=== PATIENT | male | born 1990 | race African-American/Black ===

== ENCOUNTER 2024-02-04 11:20 | Emergency (ER) | payer OTHER, SELFPAY ==
--- NOTE | ~2024-02-04 | CT_ITS ---
EXAMINATION: CT lumbar spine wo con DATE: 02/04/2024 13:27 INDICATION: Low back pain. TECHNIQUE: Computed tomography (CT) of the lumbar spine was performed without intravenous contrast. A utomated exposure control and iterative reconstruction technique were employed. The dose-length produ ct was 1566.57 mGy-cm. COMPARISON: None FINDINGS: There is 4 degrees dextrocurvature of thoracolumbar spine. Vertebral body heights are jessie l. Intervertebral disc heights are normal. The following disc levels are specifically discussed: L1-L2: The disc does not extend beyond the endplate margin. There is mild bilateral facet joint osteo arthritis. There is no neural foraminal stenosis. There is no central canal stenosis. L2-L3: The disc does not extend beyond the endplate margin. There is mild bilateral facet joint osteo arthritis. There is no neural foraminal stenosis. There is no central canal stenosis. L3-L4: The disc is bulging. There is mild bilateral facet joint osteoarthritis. There is mild bilater al neural foraminal stenosis. There is mild central canal stenosis. L4-L5: The disc is bulging. There is mild bilateral facet joint osteoarthritis. There is mild bilater al neural foraminal stenosis. There is mild central canal stenosis. L5-S1: The disc is bulging. There is mild bilateral facet joint osteoarthritis. There is mild bilater al neural foraminal stenosis. There is mild central canal stenosis. IMPRESSION: 1. Mild lumbar spondylosis. Reviewed, dictated and finalized at location E. IMPRESSION: 1. Mild lumbar spondylosis.
[2024-02-04 11:21] VITALS: BP 138/69; PULSE 60; RESP 18; TEMP 36.6; O2SAT 100
--- NOTE | 2024-02-04 13:14 | ED.BACK ---
HPI - Back Pain/Injury General Chief Complaint: Back Pain/Injury Stated Complaint: back pain Time Seen by Provider: 02/04/24 12:32 History of Present Illness HPI Narrative: Patient is a 33-year-old male who presents to the emergency department this afternoon complaining of lower right back pain. Patient states that he has been having this pain for the past 3-4 days. He admits that he works for [employer] and does lift a lot of heavy objects. Patient went to an urgent care few days ago and was given a pain shot and muscle relaxer which he states has not improved his symptoms. Patient also states that he went back to work the next day and feels as though maybe that was the reason why his symptoms did not improve. Patient denies any recent falls or trauma. He does admit sciatic like pain occasionally shooting down his right leg. Patient denies any previous imaging of his lower lumbar spine. He did this admit that at the Urgent Care they performed x-rays of his lower back and nose did not reveal any abnormality. Patient denies any bowel or bladder incontinence, denies any IV drug use any recent fevers or chills and denies any additional symptoms or concerns at this time. Review of Systems Review of Systems: All systems are reviewed and are negative unless stated otherwise in the HPI. Exam Narrative: General: Alert, awake, afebrile, in no acute distress. HEENT: PERRL, no rhinorrhea, no post nasal drip, oropharynx clear. Cardiovascular: Regular rate and rhythm, no murmurs, rubs or gallops, no peripheral edema. Respiratory: Clear to auscultation bilaterally, no tachypnea, no wheezing, no rhonchi, no rubs, no respiratory distress. Abdomen: Soft, nontender, nondistended, no rebound, no guarding, no peritoneal signs. Musculoskeletal: No joint swelling or deformity, normal muscle tone, no midline tenderness to palpation over the lumbar spine. Skin: No rashes or petechia, no signs of infection. Psychiatric: Alert and oriented, normal behavior and judgment for situation. Neurological: Alert and oriented to person, place, and time. Follows all commands. No focal deficits, speech is clear and fluent. Course Vital Signs Vital signs: Vital Signs Temperature 97.9 F 02/04/24 11:21 Pulse Rate 60 02/04/24 11:21 Respiratory Rate 18 02/04/24 11:21 Blood Pressure 138/69 02/04/24 11:21 Pulse Oximetry 100 02/04/24 11:21 Oxygen Delivery Room Air 02/04/24 11:21 Temperature 97.9 F 02/04/24 11:21 Pulse Rate 60 02/04/24 11:21 Respiratory Rate 18 02/04/24 11:21 Blood Pressure 138/69 02/04/24 11:21 Pulse Oximetry 100 02/04/24 11:21 Oxygen Delivery Room Air 02/04/24 11:21 MDM - Back Pain/Injury MDM Narrative Medical decision making narrative: The patient was evaluated by myself in the emergency department. History is obtained from patient who is an independent historian and physical exam was performed. External medical records were reviewed at this time. IV was established and pertinent tests were ordered. Patient was administered 50 mg of IM Toradol for pain. Imaging studies obtained included CT lumbar spine without IV contrast which was independently interpreted by me revealing mild lumbar spondylosis, which is pending final radiology interpretation. Differential diagnosis considerations include herniated disc, musculoskeletal strain and pinched nerve. Comorbidities impacting this visit include history of work involving heavy lifting. I have evaluated and discussed social determinants of health with the patient that could potentially impact subsequent diagnosis and treatment plans. On repeat assessment of the patient, reevaluation revealed that the patient is doing well and is in no acute distress. Patient symptoms have improved since he arrived to our emergency department. Repeat vital signs were all reviewed and noted to be stable. Differential diagnosis and treatment plan were discussed with the
[2024-02-04] MEDS: KETOROLAC 30 MG/ML VIAL (*BKC) 15 MG IM (13:15)
== END 2024-02-04 13:50 | disposition home or self-care (01) ==
PROVIDERS: Emergency Provider Emergency Medicine
DX: M47.816 Spondylosis without myelopathy or radiculopathy, lumbar region (principal)
CPT/HCPCS: 72131; 96372; 99284; J1885

== ENCOUNTER 2024-06-20 12:05 | Emergency (ER) | payer OTHER, SELFPAY ==
[2024-06-20 12:14] VITALS: BP 122/82; PULSE 56; RESP 20; TEMP 36.6; O2SAT 100
--- NOTE | 2024-06-20 12:58 | ED.GENADULT ---
HPI - General Adult General Chief complaint: Abdominal Pain Stated complaint: Abdominal Pain/Diarrhea Time Seen by Provider: 06/20/24 12:59 Source: patient, RN notes reviewed and old records reviewed Mode of arrival: ambulatory Limitations: no limitations History of Present Illness HPI narrative: 34-year-old male presents to the [facility] with concerns for diarrhea. States last night he had a call in sick to work due to several episodes of diarrhea due to eating at a new place which food was very spicy. Patient had 1 episode of nausea with vomiting but states that after he vomited he felt much better. Denies any abdominal pain, fevers. No treatment prior to arrival Onset (ago): day(s) (1) Treatments prior to arrival: none Related Data Home Medications Medication Instructions Recorded Confirmed ibuprofen 800 mg tablet 800 mg PO TID 06/20/24 06/20/24 Allergies Allergy/AdvReac Type Severity Reaction Status Date / Time No Known Allergies Allergy Verified 06/20/24 12:09 Review of Systems Review of Systems: All systems reviewed & are unremarkable except as noted in HPI and below Constitutional: Constitutional: Reports no additional constitutional complaints Eyes: Eyes: Reports no additional eye complaints ENT: Reports system reviewed and no additional complaints, except as documented Cardiovascular: Cardiovascular: Reports no additional cardiovascular complaints, Denies chest pain and Denies dyspnea Respiratory: Respiratory: Reports no additional respiratory complaints, Denies chest congestion, Denies cough and Denies dyspnea Gastrointestinal: Gastrointestinal: Reports as per HPI, Reports abdominal pain, Reports diarrhea, Reports nausea and Reports vomiting Musculoskeletal: Musculoskeletal: Reports no additional musculoskeletal complaints Integumentary/Breasts: Skin/Breast: Reports system reviewed and no additional complaints, except as docu Neurologic: Reports system reviewed and no additional complaints, except as documented Psychiatric: Psychiatric: Reports no additional psychiatric complaints Allergic/Immunologic: Allergic/Immunologic: Reports no additional allergic/immunologic complaints PMFSH Comments At the time of my signature, I reviewed and agree with the nursing past medical, surgical, social, and family history. There is no relevant family history pertinent to the patient complaint. Exam Const: General: cooperative, healthy appearing, comfortable, no acute distress, well developed, alert and well nourished Nutritional Appearance: well nourished and obese Orientation/consciousness: patient oriented x3 Limitations: no limitations HENMT: Head: normal to inspection Ears: hearing grossly normal bilaterally and external ears normal Face/Nose/Sinus: Normal external nose present, normal facial exam and face symmetric Face and sinus: normal facial exam and face symmetric Eyes: General: appearance normal, both eyes and all related structures Alignment and Position: alignment normal Periorbital: periorbital findings normal Neck: Neck: normal visual inspection, full ROM, no lymphadenopathy and no meningeal signs Chest: Chest palpation & inspection: normal inspection of the chest Resp: Effort & Inspection: normal respiratory effort and able to speak in complete sentences Auscultation: clear to auscultation bilaterally, no crackles, no rales, no rhonchi and no wheezes Cardio: Rate: regular rate Rhythm: regular rhythm GI: GI Palp: No abdominal tenderness and Yes Soft to palpation Auscultation: normal bowel sounds Skin: General skin exam: normal color and no rashes or lesions noted Lesions: no lesions Rashes: no rashes Trauma: no lacerations or abrasions Wounds: no wounds Neuro: General: patient oriented x3, gait normal, tone normal, moves all extremities and no meningeal signs Cognition (Neuro): normal cognition Speech: normal speech Gait exam (Neuro): Normal gait present Extrem: General: nor
== END 2024-06-20 13:15 | disposition home or self-care (01) ==
PROVIDERS: Emergency Provider Nurse Practitioner; PCP Physician Assistant
DX: K52.9 Noninfective gastroenteritis and colitis, unspecified (principal)
CPT/HCPCS: 99211; G0463

== ENCOUNTER 2024-10-13 08:24 | Emergency (ER) | payer OTHER, SELFPAY ==
[2024-10-13 08:34] VITALS: BP 118/63; PULSE 62; RESP 16; TEMP 36.8; O2SAT 98
--- NOTE | 2024-10-13 08:42 | ED.URI ---
HPI - URI/Sore Throat General Chief Complaint: Upper Respiratory Infection Stated Complaint: throwing up,MCCOY,ear pressure Time Seen by Provider: 10/13/24 08:53 Source: patient, RN notes reviewed and old records reviewed Mode of arrival: ambulatory Limitations: no limitations History of Present Illness HPI Narrative: Patient presents with complaints of flu-like symptoms that began this morning. He has not taken any medication for his symptoms. He is here because his boss requested that he come get ?checked out? Related Data Home Medications ?Medication ?Instructions ?Recorded ?Confirmed ?Last Taken ?Type ibuprofen 800 mg tablet 800 mg PO TID 06/20/24 06/20/24 Unknown History Allergies Allergy/AdvReac Type Severity Reaction Status Date / Time No Known Allergies Allergy Verified 10/13/24 08:34 Review of Systems Review of Systems: All systems reviewed & are unremarkable except as noted in HPI and below Constitutional: Constitutional: Reports no additional constitutional complaints, Reports body ache(s), Reports chills, Reports excessive sweating, Reports headache(s) and Reports lethargy ENT: Reports system reviewed and no additional complaints, except as documented and Reports nasal congestion Cardiovascular: Cardiovascular: Reports no additional cardiovascular complaints Respiratory: Respiratory: Reports no additional respiratory complaints Gastrointestinal: Gastrointestinal: Reports no additional gastrointestinal complaints, Denies abdominal pain, Denies GI cramping, Denies diarrhea, Reports nausea and Reports vomiting PMFSH Comments At the time of my signature, I reviewed and agree with the nursing past medical, surgical, social, and family history. There is no relevant family history pertinent to the patient complaint. Exam Const: General: cooperative, no acute distress, alert and awake Orientation/consciousness: oriented to person, oriented to place and oriented to time HENMT: Head: normal to inspection Mouth: Yes moist mucous membranes Resp: Effort & Inspection: normal respiratory effort and able to speak in complete sentences Auscultation: clear to auscultation bilaterally, no crackles, no rales, no rhonchi and no wheezes Cardio: Palpation: normal PMI Rate: regular rate Rhythm: regular rhythm Heart sounds: S1 normal heart sound present and S2 normal heart sound present Neuro: General: oriented to person, oriented to place and oriented to time Cranial nerves: Yes CN's II-XII intact bilaterally Psych: Appearance: grossly normal Thought process: Normal thought process present Insight: Good insight present (Psych) Judgement: Good judgement present (Psych) Course Course Level of Care: Express Care Visit Vital Signs Vital signs: Vital Signs Temperature 98.3 F 10/13/24 08:34 Pulse Rate 62 10/13/24 08:34 Respiratory Rate 16 10/13/24 08:34 Blood Pressure 118/63 10/13/24 08:34 Pulse Oximetry 98 10/13/24 08:34 Oxygen Delivery Room Air 10/13/24 08:34 Temperature 98.3 F 10/13/24 08:34 Pulse Rate 62 10/13/24 08:34 Respiratory Rate 16 10/13/24 08:34 Blood Pressure 118/63 10/13/24 08:34 Pulse Oximetry 98 10/13/24 08:34 Oxygen Delivery Room Air 10/13/24 08:34 Reviewed MDM - URI/Sore Throat MDM Narrative Medical decision making narrative: Patient in no distress, flu like symptoms for less than 24 hours. Negative COVID and flu, but suspect testing was done too early to show on test. This was discussed with patient, he verbalized understanding of same Discharge instructions reviewed with patient, as well as provided in writing per nursing staff. The instructions also include specific and strict return/GO TO THE ER as well as f/u information. All questions have been answered, and the patient deny any further questions with discharge and discharge plan. Some parts of this dictation were generated by voice recognition software and may contain typographical and/or grammatical inaccuracies. Differential Diagnosis Differential diagnosis: Likely upper respiratory infection, sinusitis and bronchitis Medical Records Attestation: I reviewed the patient's medical records. Lab Data Attestation: I reviewed the patient's lab results. Discharge Plan Discharge Clinical Impression: Viral infection Patient Disposition: Home, Self-Care Condition: Stable Instructions: Antibiotic Form, Influenza (ED) Additional Instructions: Use [id number] medications to treat your symptoms. Follow-up with primary care provider. Emergency department for new or worse symptoms Patient Language: Malagasy Prescriptions: No Action ibuprofen 800 mg tablet 800 mg PO TID Follow-up/Referrals: Oracio,BARBARA Bower [Primary Care Provider] - 2 Weeks Stand Alone Forms: Work/School Release IP Time of Disposition: 09:01
[2024-10-13 09:00] LABS: EDCOVIDSCREEN Negative (Negative); EDINFLUASCREEN Negative (Negative); EDINFLUBSCREEN Negative (Negative)
== END 2024-10-13 09:09 | disposition home or self-care (01) ==
PROVIDERS: Emergency Provider Nurse Practitioner Family; PCP Physician Assistant
DX: B34.9 Viral infection, unspecified (principal); Z20.822 Contact with and (suspected) exposure to COVID-19
CPT/HCPCS: 87426; 87804; 99212; G0463